=== PATIENT | female | born 1985 | race Caucasian/White ===

== ENCOUNTER 2019-07-02 16:42 | Emergency (ER) | payer OTHER ==
[~2019-07-02] VITALS: Ht 172.7 cm; Wt 64.5 kg
--- NOTE | 2019-07-02 17:58 | NUR ---
PT. GAVE US VERBAL PERMISSION TO SHARE MEDICAL INFORMATION WITH HER FRIEND SYLVIA RICHI.
[2019-07-02 18:04] LABS: BASOPHILS # (AUTO) 0.1 X10'3 (0-0.2); BASOPHILS % (AUTO) 0.7 % (0-1); EOSINOPHILS % (AUTO) 0.3 % (0-6); HEMATOCRIT 41.3 % (35.0-45.0); HEMOGLOBIN 14.2 g/dl (12.0-16.0); LYMPHOCYTES # (AUTO) 1.3 X10'3 (1.1-4.8); MEAN CORPUSCULAR HEMOGLOBIN 30.4 PG (27.0-31.0); MEAN CORPUSCULAR HGB CONC 34.4 g/dL (33.0-36.5); MEAN CORPUSCULAR VOLUME 88.3 FL (78-98); MEAN PLATELET VOLUME 8.6 FL (7.4-10.4); MONOCYTES # (AUTO) 0.4 X10'3 (0-0.9); MONOCYTES % (AUTO) 5.5 % (2-12); NEUTROPHILS # (AUTO) 5.3 X10'3 (1.8-7.7); NEUTROPHILS % (AUTO) 74.5 % (42-75); PLATELET COUNT 314 X10'3 (140-440); RED BLOOD COUNT 4.68 X10'6 (4.20-5.60); RED CELL DISTRIBUTION WIDTH 12.8 % (11.5-14.5); WHITE BLOOD COUNT 7.1 X10'3 (4.5-11.0)
--- NOTE | 2019-07-02 18:10 | NUR ---
Patient c/o suicidal thoughts since eric broke up with her in April and immediately went with another partner. Patient had just sold her car because they had too many cars. Now patient without a car, and left behind. Patient is living with friend and her (mom and dad figures, Ruth Sood). Patient is tearful and sent her by her therapist because she told therapist about feeling suicidal. Suicidal thoughts are getting worse. Addendum: 07/02/19 at 1821 by DELIA Patient's brother killed himself. Patient's mother was a drug addict and patient had a very difficult childhood.
[2019-07-02 18:13] LABS: ALANINE AMINOTRANSFERASE 16 U/L (12-78); ALBUMIN/GLOBULIN RATIO 1.2 (1.1-1.5); ALKALINE PHOSPHATASE 63 IU/L (46-116); ANION GAP 9 (8-16); ASPARTATE AMINO TRANSFERASE 11 U/L (10-37); BILIRUBIN,TOTAL 0.3 MG/DL (0.1-1.0); BLOOD UREA NITROGEN 9 MG/DL (7-18); BUN/CREATININE RATIO 14.1 (6.6-38.0); CALCIUM 9.3 MG/DL (8.5-10.1); CHLORIDE 108 MMOL/L (99-107); CREATININE 0.64 MG/DL (0.40-0.90); GLUCOSE 100 MG/DL (70-104); POTASSIUM 3.7 MMOL/L (3.5-5.1); SODIUM 143 MMOL/L (135-145); TOTAL CARBON DIOXIDE 26.2 MMOL/L (24-32); TOTAL PROTEIN 7.3 G/DL (6.4-8.2); eGFR > 90 ML/MIN
[2019-07-02 18:22] LABS: ETHANOL < 0.010 GM/DL (0.0-0.010)
[2019-07-02] MEDS ORDERED: FLUoxetine 20mg capsule PO STA (18:37)
--- NOTE | 2019-07-02 19:00 | NUR ---
patient referred to [facility].
[2019-07-02 19:13] LABS: URINE HCG NEGATIVE (NEG)
[2019-07-02 19:15] LABS: CLARITY,URINE SLIGHTLY CLOUDY (Clear); COLOR,URINE YELLOW (Yellow); GLUCOSE, URINE NEGATIVE (Neg); KETONES,URINE NEGATIVE (Neg); LEUKOCYTE ESTERASE ,URINE NEGATIVE (Neg); NITRITES, URINE NEGATIVE (Neg); OCCULT BLOOD,URINE NEGATIVE (Neg); PROTEIN,URINE NEGATIVE (Neg); UROBILINOGEN,URINE 0.2 E.U/dL (0.2-1.0)
[2019-07-02 19:20] LABS: UA COLLECTION TYPE CLN CATCH MIDSTREAM
[2019-07-02 19:23] LABS: BACTERIA,URINE NONE SEEN /HPF (Neg); RBC,URINE NONE SEEN /HPF (0-2); SQUAMOUS EPITHELIAL CELL,UR MANY /LPF (FEW); URINE AMPHETAMINE SCREEN NEGATIVE (Neg); URINE BARBITUATE SCREEN NEGATIVE (Neg); URINE BENZODIAZEPINES SCREEN NEGATIVE (Neg); URINE CANNABINOID SCREEN NEGATIVE (Neg); URINE COCAINE SCREEN NEGATIVE (Neg); URINE METHADONE SCREEN NEGATIVE (Neg); URINE OPIATE SCREEN NEGATIVE (Neg); URINE PHENCYCLIDINE SCREEN NEGATIVE (Neg); WBC,URINE NONE SEEN /HPF (0-4)
[2019-07-02 19:24] LABS: AMORPHOUS PHOSPHATES 3+
--- NOTE | 2019-07-02 20:00 | NUR ---
The patient has been quietly resting on her bed and visiting with a female visitor. She is reports her mood has been "Sad" and that she has been having suicidal thoughts for the past month. She has been seeing a therapist locally and the therapist referred her here. She has had a previous SA by taking an overdose but currently is not on any psychiatric medications and she has never been in a psychiatric hospital. She deies any legal problems. Current stressor is that her fiance broke up with her.
--- NOTE | 2019-07-02 21:40 | NUR ---
packet sent to [facility]
--- NOTE | 2019-07-02 23:41 | NUR ---
The patient appears to be sleeping
--- NOTE | 2019-07-03 00:52 | NUR ---
The patient appears to be sleeping
--- NOTE | 2019-07-03 02:44 | NUR ---
The patient appears to be sleeping
--- NOTE | 2019-07-03 04:57 | NUR ---
The patient appears to be sleeping
[2019-07-03 05:39] VITALS: BP 100/69
--- NOTE | 2019-07-03 06:30 | NUR ---
Patient sleeping supine. No distress observed. Continue to monitor.
--- NOTE | 2019-07-03 07:10 | NUR ---
Patient awake and tearful. Patient wants to go home. Patient is awaiting eval from [facility]. Continue to monitor.
[2019-07-03] MEDS ORDERED: FLUoxetine 20mg capsule PO SCH (08:00)
--- NOTE | 2019-07-03 08:34 | NUR ---
PACKET FAXED TO [facility]
--- NOTE | 2019-07-03 09:10 | NUR ---
BREAKING PRIMARY RN, PT IS SITTING AT BED SIDE. TALKING TO [facility] STAFF, NO AGITATION OBSERVED
--- NOTE | 2019-07-03 09:21 | NUR ---
PT SEEN BY GELA CORREIA, HE STATES THAT HE WILL NOT BE KEEPING THE PT ON A HOLD, AND THAT HE IS GOING TO RECOMMEND MEDICATIONS FOR DISCHARGE
--- NOTE | 2019-07-03 10:05 | NUR ---
Patient with family friend. No distress oberved. Continue to monitor.
== END 2019-07-03 10:55 | disposition home or self-care (01) ==
LOC: ER 16:43 → EEVIPCON 16:43 → ER 07-03 10:55
DX: F32.9 Major depressive disorder, single episode, unspecified (principal); F17.200 Nicotine dependence, unspecified, uncomplicated; Z88.2 Allergy status to sulfonamides; Z88.5 Allergy status to narcotic agent
CPT/HCPCS: 36415; 80053; 80305; 80320; 81001; 81025; 84443; 85025; 99283; 99284